=== PATIENT | male | born 1985 | race American Indian/Alaskan Native ===

== ENCOUNTER 2017-01-31 22:36 | Emergency (ER) | payer OTHER ==
[2017-01-31 22:47] VITALS: BP 133/75
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
[2017-02-01] MEDS ORDERED: NORCO 5/325 PO ONE (00:28)
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
[2017-02-01] MEDS ORDERED: LOVENOX SUB-Q ONE (01:20)
== END 2017-02-01 03:40 | disposition home or self-care (01) ==
LOC: ED 22:36
DX: L03.115 Cellulitis of right lower limb (principal); S81.801A Unspecified open wound, right lower leg, initial encounter
CPT/HCPCS: 73590; 96372; 99283; J1650

== ENCOUNTER 2017-02-01 15:49 | Outpatient (CLI) | payer OTHER | END 2017-02-01 15:50 | disposition home or self-care (01) | LOC: VAS 15:49 | PROVIDERS: ATTEND Nurse Practitioner Family ==

== ENCOUNTER 2017-09-28 05:44 | Emergency (ER) | payer OTHER ==
[2017-09-28 05:52] VITALS: BP 135/73
== END 2017-09-28 07:18 ==
LOC: ED 05:44
DX: M79.673 Pain in unspecified foot (principal); Z53.21 Procedure and treatment not carried out due to patient leaving prior to being seen by health care provider

== ENCOUNTER 2017-11-08 05:47 | Emergency (ER) | payer OTHER ==
[2017-11-08 06:21] VITALS: BP 113/69
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
[2017-11-08] MEDS ORDERED: KEFLEX PO ONE (09:51)
[2017-11-08] MEDS ORDERED: MOTRIN PO ONE (09:51)
[2017-11-08] MEDS ORDERED: BOOSTRIX IM ONE (09:51)
== END 2017-11-08 10:14 | disposition home or self-care (01) ==
LOC: ED 05:47
DX: L03.032 Cellulitis of left toe (principal); L03.031 Cellulitis of right toe
CPT/HCPCS: 99282